=== PATIENT | female | born 1985 | race Caucasian/White ===

== ENCOUNTER 2019-09-21 09:19 | Emergency (ER) | payer OTHER ==
[~2019-09-21] VITALS: Ht 167.6 cm; Wt 79.4 kg
[~2019-09-21 09:19] MED LIST: ALBIPROI INH; AZIT250 PO; Bactrim Ds Tab1 EACH PO; CEPH500 PO; Dilantin 100 m100 MG PO; HYDACE5 PO; HYDGUAL120 PO; IBUP600 PO; Keppra1000 MG PO; MULVITMINE; OXYACE5T PO; PRED20 PO; PROM25 PO
== END 2019-09-21 11:23 | disposition home or self-care (01) ==
LOC: ER 09:19
DX: S60.222A Contusion of left hand, initial encounter (principal); S50.812A Abrasion of left forearm, initial encounter; M25.521 Pain in right elbow; G40.909 Epilepsy, unspecified, not intractable, without status epilepticus; G43.909 Migraine, unspecified, not intractable, without status migrainosus; Z88.0 Allergy status to penicillin; Z79.899 Other long term (current) drug therapy; F17.210 Nicotine dependence, cigarettes, uncomplicated; V89.2XXA Person injured in unspecified motor-vehicle accident, traffic, initial encounter
CPT/HCPCS: 73080; 76882; 99284-25

== ENCOUNTER → 2025-01-10 | Outpatient (CLI) | payer OTHER ==
[2025-01-17 10:01] LABS: HPV HIGH RISK BY TMA Not Detected; HPV SOURCE Cervical
== END ==
LOC: LAB 09:18 → LAB SHORT 09:18
PROVIDERS: Advanced Practice Midwife
DX: Z01.419 Encounter for gynecological examination (general) (routine) without abnormal findings (principal)
CPT/HCPCS: 87624; G0123